=== PATIENT | male | born 1960 | race African-American/Black ===

== ENCOUNTER → 2016-07-27 | Emergency (ER) | payer BC ==
[~2016-07-27] VITALS: Ht 175.3 cm; Wt 66.7 kg
[~2016-07-27] MED LIST: CYCLOBENZAPRINE10 MG ORAL; IBUPROFEN600 MG ORAL
[2016-07-27 12:39] VITALS: BP 132/78
--- NOTE | 2016-07-27 13:28 | Emergency Room Report ---
History of Present Illness General Chief Complaint: Upper Extremity Injury Source: Patient Present Illness HPI 56-year-old male presents emergency department complaining of 7/10 in severity localized pain that radiates from the right shoulder down into the fourth and fifth digits of the hand. Patient reports shocking sensation/shooting pain with intermittent numbness and tingling depending on certain positions of the arm. 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 Patient denies taking medications for his symptoms. Patient denies skin color changes or changes in temperature to the affected extremity. he denies weakness in the affected extremity. he denies past medical history. Patient states symptoms are exacerbated upon raising the arm. Denies gross numbness/tingling or gross loss of sensation or gross motor movements of the extremities, incontinence of bowel or bladder. Denies CP, Palpitations, LOC, AMS, dizziness, Changes in Vision, Sensation, paresthesias, or a sudden severe headache. Allergies: Coded Allergies: No Known Allergies (Unverified , 07/27/16) Patient History Past Medical History: see triage record Past Surgical History: none Pertinent Family History: none Immunizations: UTD Reviewed Nursing Documentation: PMH: Agreed, PSxH: Agreed Nursing Documentation-PMH Past Medical History: No Stated History Review of Systems All Other Systems: negative except mentioned in HPI Physical Exam Vital Signs Date Time Temp Pulse Resp B/P Pulse Ox O2 Delivery O2 Flow Rate FiO2 07/27/16 12:39 98.2 75 18 132/78 98 Room Air Sp02 EP Interpretation: reviewed, normal General Appearance: no apparent distress, alert, GCS 15, non-toxic Head: normocephalic, atraumatic Eyes: bilateral eye PERRL, bilateral eye normal inspection ENT: hearing grossly normal, normal pharynx, no angioedema, normal voice Neck: full range of motion, no meningismus, no bony tend, supple/symm/no masses , other - FROM without exacerbation of s/x's Respiratory: chest non-tender, lungs clear, normal breath sounds, speaking full sentences Cardiovascular #1: regular rate, rhythm, no edema, normal capillary refill Cardiovascular #2: 2+ radial (R), 2+ radial (L) Musculoskeletal: back normal, gait/station normal, normal range of motion, tender - TTP to the proximal biceps, no shoulder bony ttp, pain exacerbated with raising arm above shoulder height, negative lift off test. 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 Leone is my supervising Physician whom patient management has been discussed with. Diagnostic Impression: Primary Impression: Biceps tendinitis of right shoulder Additional Impression: Impingement syndrome of right shoulder ER Course 56-year-old male presents emergency department complaining of 7/10 in severity localized pain that radiates from the right shoulder down into the fourth and fifth digits of the hand. Patient reports shocking sensation/shooting pain with intermittent numbness and tingling depending on certain positions of the arm. 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 Patient denies taking medications for his symptoms. Patient denies skin color changes or changes in temperature to the affected extremity. he denies weakness in the affected extremity. he denies past medical history. Patient states symptoms are exacerbated upon raising the arm. Denies gross numbness/tingling or gross loss of sensation or gross motor movements of the extremities, incontinence of bowel or bladder. Denies CP, Palpitations, Ddx considered but are not limited to :CVA, OH, paresthesias, nerve impingement , cervical injury. Vital signs: are WNL, pt. is afebrile H&PE are most consistent with nerve impingement syndrome, no focal neurological deficit on PE, symptoms are intermittent and exacerbated in certain positions indicating ORDERS: none required at this time, the diagnosis is clinical ED INTERVENTIONS: None required at this time. -d/w pt. conservative treatment, and to follow up with PCP, may require neurological follow up and possibly MRI. d/w pt. to return to ED with worsening or new symptoms. DISCHARGE: At this time pt. is stable for d/c to home. Will provide printed patient care instructions, and any necessary prescriptions. Care plan and follow up instructions have been discussed with the patient prior to discharge. Last Vital Signs Date Time Temp Pulse Resp B/P Pulse Ox O2 Delivery O2 Flow Rate FiO2 07/27/16 12:39 98.2 75 18 132/78 98 Room Air Disposition: HOME, SELF-CARE Condition: Stable Scripts Ibuprofen* (MOTRIN*) 600 Mg Tablet 600 MG ORAL THREE TIMES A DAY, #20 TAB 0 Refills Prov: Montserrat Garcia 07/27/16 Cyclobenzaprine Hcl* (FLEXERIL*) 10 Mg Tablet 10 MG ORAL THREE TIMES A DAY for 7 Days, #21 TAB Prov: Montserrat Garcia 07/27/16 Departure Forms: Return to Work Return to Work Date: Jul 31, 2016 Work Restrictions: No Heavy Lifting Other Restrictions: limited use of right arm x 1 week. Return to Full Activity: Aug 03, 2016 Patient Instructions: Impingement Syndrome, Rotator Cuff, Bursitis With Rehab- [facility] Additional Instructions: Take medications as directed. Follow up with PCP in 3-5 days Return sooner to ED if new symptoms occur, or current symptoms become worse. Do not drink alcohol, drive, or operate heavy machinery while taking Muscle Relaxers as this may cause drowsiness. - Please note that this Emergency Department Report was dictated using [employer] man technology software, occasionally this can lead to erroneous entry secondary to interpretation by the dictation equipment. Montserrat Garcia Jul 27, 2016 13:28
== END | disposition home or self-care (01) ==
LOC: EMR 13:05
DX: M75.21 Bicipital tendinitis, right shoulder (principal); M75.41 Impingement syndrome of right shoulder
CPT/HCPCS: 99284